=== PATIENT | female | born 1950 | race Caucasian/White ===

== ENCOUNTER 2024-08-09 10:12 | Observation (INO) ==
[2024-08-09] MEDS ORDERED: IOPAMIDOL 100 ML BOTTLE IV ONE (10:13)
[2024-08-09] MEDS: PANTOPRAZOLE 40 MG VIAL IV ONE (10:58)
[2024-08-09] MEDS: METOCLOPRAMIDE 10 MG/2 ML VIAL IV ONE (10:58)
[2024-08-09] MEDS: HYDROmorphone 0.5 MG/0.5 ML SYRINGE IV ONE (10:58)
[2024-08-09] MEDS: 0.9 % SODIUM CHLORIDE 1,000 ML IV ONE (10:59)
[2024-08-09 11:08] LABS: Basophils # (Auto) 0.04 K/mcL (0.00-0.30); Basophils % (Auto) 0.7 % (0.0-2.0); Eosinophils # (Auto) 0.09 K/mcL (0.00-0.70); Eosinophils % (Auto) 1.6 % (0.0-7.0); Hemoglobin 12.1 g/dL (11.2-15.7); Lymphocytes # (Auto) 1.05 K/mcL (1.50-4.80); Lymphocytes % (Auto) 19.1 % (15.5-49.0); Mean Cell Volume 94.8 fL (80.0-100.0); Mean Corpuscular HGB Conc 31.8 g/dL (31.0-36.0); Mean Platelet Volume 10.3 fL (8.8-12.5); Monocytes % (Auto) 10.9 % (1.0-12.0); Neutrophils % (Auto) 67.5 % (38.0-78.0); Platelet Count 214 K/mcL (140-440); RBC 4.01 M/mcL (3.59-5.38); Red Cell Distribution Width 13.7 % (11.5-14.5); WBC 5.5 K/mcL (4.5-11.0)
[2024-08-09 11:26] LABS: ALT/SGPT 26 U/L (<40); AST/SGOT 29 U/L (<32); Albumin/Globulin Ratio 1.6 (1.0-2.3); Alkaline Phosphatase 108 U/L (39-117); Bilirubin,Total 0.3 mg/dL (0.1-1.0); Blood Urea Nitrogen 15 mg/dL (8-23); Calcium 9.9 mg/dL (8.6-10.4); Carbon Dioxide 24 mmol/L (22-30); Chloride 103 mmol/L (96-108); Globulin 2.5 gm/dL (2.2-3.7); Glomerular Filtration Rate 64; Glucose 79 mg/dL (70-105); Potassium 4.1 mmol/L (3.3-5.1); Sodium 137 mmol/L (133-145)
[2024-08-09 12:27] LABS: Appearance,Urine Clear (Clear); Bilirubin,Urine Negative (Negative); Color,Urine Yellow; Glucose,Urine (UA) Negative (Negative); Ketones,Urine Negative (Negative); Leukocyte Esterase,Urine Negative /uL (Negative); Nitrate,Urine Negative (Negative); PH,Urine 7.5 (5.0-9.0); Protein,Urine Negative (Negative); Specific Gravity,Urine 1.015 (1.000-1.035); Urine Blood Negative ery/mcL (Negative); Urine RBC 0 /hpf (0-3); Urine Squamous Epithelial Cell 0 /hpf (0-4); Urine WBC 0 /hpf (0-4); Urobilinogen,Urine Normal
[2024-08-09] MEDS: LORazepam 2 MG/ML VIAL IV ONE (12:51)
[2024-08-09] MEDS: DEXTROSE 5%-LR 1,000 ML IV SCH (15:32)
[2024-08-09] MEDS ORDERED: DIATRIZOATE MEGLU/DIATRIZO SOD 120ML BOTTLE PO ONE (16:13)
[2024-08-09] MEDS ORDERED: BENZOCAINE/MENTHOL 1 LOZENGE PO PRN (18:00)
[2024-08-09] MEDS ORDERED: BACLOFEN 10 MG TABLET PO PRN (18:07)
[2024-08-09] MEDS ORDERED: IPRATROPIUM 2.5 ML AMPUL.NEB INH PRN (18:07)
[2024-08-09] MEDS ORDERED: LIDOCAINE 4% TOP PATCH TOPICAL PRN (19:00)
[2024-08-09] MEDS ORDERED: Fluticasone-Umeclidin-Vilanter [Trelegy Ellipta] Inhaler INH PRN (19:01)
[2024-08-09] MEDS: BENZOCAINE ONE 20% 1 SPRAY TOPICAL (19:06)
[2024-08-09] MEDS: HYDROmorphone 0.5 MG/0.5 ML SYRINGE IV PRN (20:17)
[2024-08-09] MEDS: LORazepam 2 MG/ML VIAL IV PRN (20:52)
[2024-08-09] MEDS: LORazepam 2 MG/ML VIAL ONE (20:55)
[2024-08-09] MEDS: ATORVASTATIN 40 MG TABLET PO SCH (21:48)
[2024-08-09] MEDS: traZODone HCL 100 MG TABLET PO SCH (21:48)
[2024-08-10] MEDS: BENZOCAINE/MENTHOL 1 LOZENGE PO PRN (02:28)
[2024-08-10 05:35] LABS: Hematocrit 35.1 % (34.1-44.9); Hemoglobin 11.4 g/dL (11.2-15.7); Mean Cell Volume 94.9 fL (80.0-100.0); Mean Corpuscular HGB Conc 32.5 g/dL (31.0-36.0); Mean Platelet Volume 10.2 fL (8.8-12.5); Platelet Count 193 K/mcL (140-440); Red Cell Distribution Width 13.4 % (11.5-14.5); WBC 3.7 K/mcL (4.5-11.0)
[2024-08-10 05:56] LABS: Blood Urea Nitrogen 11 mg/dL (8-23); Calcium 9.5 mg/dL (8.6-10.4); Carbon Dioxide 25 mmol/L (22-30); Chloride 105 mmol/L (96-108); Glomerular Filtration Rate 73; Glucose 132 mg/dL (70-105); Sodium 140 mmol/L (133-145)
[2024-08-10 08:21] VITALS: O2SAT 92
[2024-08-10] MEDS ORDERED: NON FORMULARY MEDICATION 1 DOSE MISCELL (Hydroxyzine Pamoate 25 mg capsule) PO PRN (12:51)
[2024-08-10] MEDS ORDERED: NYSTATIN CRM 1 DOSE TUBE TOPICAL PRN (12:51)
[2024-08-10] MEDS ORDERED: NON FORMULARY MEDICATION 1 DOSE MISCELL (Oxycodone 10 mg tablet) PO PRN (12:51)
[2024-08-10] MEDS ORDERED: TRIAMCINOLONE ACETONIDE 0.5% TOPICAL PRN (12:51)
[2024-08-10] MEDS ORDERED: NALOXONE HCL 4 MG NASAL (PP) NS SCH (13:00)
[2024-08-10 14:00] VITALS: TEMP 98.9
[2024-08-10] MEDS ORDERED: LURASIDONE 40 MG PO SCH (21:00)
[2024-08-10] MEDS ORDERED: NON FORMULARY MEDICATION 1 DOSE MISCELL (Gabapentin 600 mg tablet) PO SCH (21:00)
[2024-08-10] MEDS ORDERED: QUETIAPINE 150 MG PO SCH (21:00)
[2024-08-10] MEDS ORDERED: PRIMIDONE 50 MG TABLET PO SCH (21:00)
[2024-08-11] MEDS ORDERED: BUPROPION 200 MG PO SCH (09:00)
[2024-08-11] MEDS ORDERED: VITAMIN B COMPLEX PO SCH (09:00)
[2024-08-11] MEDS ORDERED: PANTOPRAZOLE 40 MG TABLET PO SCH (09:00)
[2024-08-11] MEDS ORDERED: DOCUSATE SODIUM 100 MG CAPSULE PO SCH (09:00)
[2024-08-11] MEDS ORDERED: POTASSIUM GLUCONATE PO SCH (09:00)
[2024-08-11] MEDS ORDERED: POLYETHYLENE GLYCOL 3350 17 GM PACKET PO SCH (09:00)
[2024-08-11] MEDS ORDERED: NON FORMULARY MEDICATION 1 DOSE MISCELL (Duloxetine 60 mg capsule,delayed release(DR/EC)) PO SCH (09:00)
[2024-08-11] MEDS ORDERED: NON FORMULARY MEDICATION 1 DOSE MISCELL (Calcium Carbonate-Vitamin D3 [Calcium 600 + D(3)] PO SCH (09:00)
[2024-08-11] MEDS ORDERED: LISINOPRIL 10 MG TABLET PO SCH (09:00)
== END 2024-08-10 14:35 | disposition home or self-care (01) ==
LOC: ICU 10:12 → ED 10:12 → ICU 16:22
PROVIDERS: ADMIT Surgery Surgical Critical Care; ATTEND Surgery Surgical Critical Care

== ENCOUNTER 2025-06-07 04:50 | Inpatient (IN) ==
[2025-05-24 14:35] LABS: Basophils # (Auto) 0.05 K/mcL (0.00-0.30); Basophils % (Auto) 0.9 % (0.0-2.0); Eosinophils # (Auto) 0.11 K/mcL (0.00-0.70); Eosinophils % (Auto) 2.0 % (0.0-7.0); Hematocrit 35.6 % (34.1-44.9); Hemoglobin 11.1 g/dL (11.2-15.7); Lymphocytes # (Auto) 1.67 K/mcL (1.50-4.80); Lymphocytes % (Auto) 30.4 % (15.5-49.0); Mean Corpuscular HGB Conc 31.2 g/dL (31.0-36.0); Monocytes # (Auto) 0.63 K/mcL (0.10-0.90); Monocytes % (Auto) 11.5 % (1.0-12.0); Neutrophils % (Auto) 55.2 % (38.0-78.0); Platelet Count 267 K/mcL (140-440); RBC 4.15 M/mcL (3.59-5.38); WBC 5.5 K/mcL (4.5-11.0)
[2025-05-24 15:01] LABS: ALT/SGPT 32 U/L (<40); AST/SGOT 31 U/L (<32); Albumin 4.0 gm/dL (3.2-5.2); Albumin/Globulin Ratio 1.4 (1.0-2.3); Alkaline Phosphatase 131 U/L (39-117); Anion Gap 8.0 (8.0-16.0); Bilirubin,Total 0.5 mg/dL (0.1-1.0); Blood Urea Nitrogen 25 mg/dL (8-23); Calcium 10.3 mg/dL (8.6-10.4); Carbon Dioxide 26 mmol/L (22-30); Chloride 102 mmol/L (96-108); Globulin 2.9 gm/dL (2.2-3.7); Glucose 92 mg/dL (70-105); Potassium 4.8 mmol/L (3.3-5.1); Sodium 136 mmol/L (133-145)
[2025-05-24 15:04] LABS: Estimated Average Glucose(eAG) 126 mg/dL; Hemoglobin A1C 6.0 % Hgb (4.0-6.0)
[2025-05-24 15:18] LABS: INR 1.0 (0.9-1.1); Prothrombin Time 13.9 sec (11.9-14.5)
[2025-05-24 19:04] LABS: Bilirubin,Urine Negative (Negative); Color,Urine STRAW; Glucose,Urine (UA) Negative (Negative); Ketones,Urine Negative (Negative); Leukocyte Esterase,Urine Negative /uL (Negative); PH,Urine 7.0 (5.0-9.0); Protein,Urine Negative (Negative); Specific Gravity,Urine 1.003 (1.000-1.035); Urobilinogen,Urine Negative
[2025-06-07] MEDS: ceFAZolin 2 GM in DEXTROSE 5% IN WATER 50 ML IV SCH (05:49)
[2025-06-07] MEDS: LISINOPRIL 10 MG TABLET ONE (05:50)
[2025-06-07] MEDS: LISINOPRIL 10 MG TABLET PO ONE (05:58)
[2025-06-07] MEDS ORDERED: MIDAZOLAM 2 MG/2 ML VIAL ONE (07:07)
[2025-06-07] MEDS ORDERED: FAMOTIDINE/PF 20 MG/2 ML VIAL IV ONE (07:07)
[2025-06-07] MEDS ORDERED: PROPOFOL 200 MG/20 ML VIAL IV ONE (07:08)
[2025-06-07] MEDS ORDERED: DEXAMETHASONE 10 MG/ML VIAL ONE (07:14)
[2025-06-07] MEDS ORDERED: TRANEXAMIC ACID 1,000 MG/10 ML VIAL ONE (07:14)
[2025-06-07] MEDS ORDERED: DEXMEDETOMIDINE HCL 200 MCG/2 ML VIAL ONE (07:14)
[2025-06-07] MEDS ORDERED: METOCLOPRAMIDE 10 MG/2 ML VIAL ONE (07:14)
[2025-06-07] MEDS ORDERED: ONDANSETRON 4 MG/2 ML VIAL ONE (07:14)
[2025-06-07] MEDS ORDERED: LIDOCAINE 2% PF 5 ML VIAL ONE (07:14)
[2025-06-07] MEDS ORDERED: GLYCOPYRROLATE 0.2 MG/ML VIAL IV ONE (07:14)
[2025-06-07] MEDS ORDERED: SUCCINYLCHOLINE 200 MG/10 ML VIAL IV ONE (07:14)
[2025-06-07] MEDS ORDERED: HYDROmorphone 0.5 MG/0.5 ML SYRINGE ONE ×3 (07:40→11:53)
[2025-06-07] MEDS ORDERED: fentaNYL 100 MCG/2 ML VIAL ONE ×3 (08:21→12:04)
[2025-06-07] MEDS: GELATIN SPONGE,ABSORBABLE 1 EACH SPONGE TOPICAL ONE (09:54)
[2025-06-07] MEDS ORDERED: fentaNYL 100 MCG/2 ML VIAL IV PRN (10:17)
[2025-06-07] MEDS ORDERED: DROPERIDOL 5 MG/2 ML VIAL IV PRN (10:17)
[2025-06-07] MEDS ORDERED: IPRATROPIUM/ALBUTEROL 3 ML AMPUL.NEB NEB PRN ×3 (10:17→12:41)
[2025-06-07] MEDS ORDERED: HYDROmorphone 0.5 MG/0.5 ML SYRINGE IV PRN (10:17)
[2025-06-07] MEDS: BUPIVACAINE 0.25% 50 ML VIAL IJ ONE (11:11)
[2025-06-07] MEDS: THROMBIN (BOVINE) 5,000 UNIT VIAL TOPICAL ONE (11:11)
[2025-06-07] MEDS: VANCOMYCIN 1 GM VIAL TOPICAL SCH (12:13)
[2025-06-07] MEDS ORDERED: ONDANSETRON 4 MG ODT TABLET SL PRN (12:15)
[2025-06-07] MEDS ORDERED: BENZOCAINE/MENTHOL 1 LOZENGE PO PRN (12:15)
[2025-06-07] MEDS ORDERED: ONDANSETRON 4 MG/2 ML VIAL IV PRN (12:15)
[2025-06-07] MEDS ORDERED: NYSTATIN CRM 1 DOSE TUBE TOPICAL PRN (12:21)
[2025-06-07] MEDS: ACETAMINOPHEN 1,000 MG/100 ML BAG IV ONE (12:43)
[2025-06-07] MEDS: DIAZEPAM 10 MG/2 ML SYRINGE IV ONE (12:50)
[2025-06-07] MEDS: fentaNYL 100 MCG/2 ML VIAL IV PRN (13:12)
[2025-06-07] MEDS: HYDROmorphone 0.5 MG/0.5 ML SYRINGE IV PRN (13:27)
[2025-06-07] MEDS: DIAZEPAM 10 MG/2 ML SYRINGE ONE (14:12)
[2025-06-07] MEDS: 0.9 % SODIUM CHLORIDE 1,000 ML IV SCH (14:40)
[2025-06-07] MEDS: METHOCARBAMOL 750 MG TABLET PO PRN (14:41)
[2025-06-07] MEDS: 0.9 % SODIUM CHLORIDE 10 ML SYRINGE IV SCH (14:41)
[2025-06-07] MEDS: GABAPENTIN 300 MG CAPSULE PO SCH (14:41)
[2025-06-07] MEDS: buPROPion 100 MG TAB.SR.12H PO SCH (21:04)
[2025-06-07] MEDS: SENNOSIDES 1 TABLET PO SCH (21:04)
[2025-06-07] MEDS: DOCUSATE SODIUM 100 MG CAPSULE PO SCH (22:31)
[2025-06-08 06:20] LABS: Hematocrit 31.9 % (34.1-44.9)
[2025-06-08 06:21] LABS: Hemoglobin 9.6 g/dL (11.2-15.7)
[2025-06-08] MEDS: DIAZEPAM 10 MG/2 ML SYRINGE IV ONE (08:03)
[2025-06-08 09:05] LABS: Anion Gap 10.0 (8.0-16.0); Blood Urea Nitrogen 15 mg/dL (8-23); Calcium 9.2 mg/dL (8.6-10.4); Carbon Dioxide 24 mmol/L (22-30); Chloride 105 mmol/L (96-108); Glucose 113 mg/dL (70-105); Potassium 4.5 mmol/L (3.3-5.1); Sodium 139 mmol/L (133-145)
[2025-06-08] MEDS: DOCUSATE SODIUM 100 MG CAPSULE PO SCH (09:36)
[2025-06-08] MEDS: CELECOXIB 200 MG CAPSULE PO SCH (09:36)
[2025-06-08] MEDS: LISINOPRIL 10 MG TABLET PO SCH (09:37)
[2025-06-08] MEDS: DIAZEPAM 5 MG TABLET PO PRN (14:36)
[2025-06-09 06:27] LABS: Hematocrit 31.5 % (34.1-44.9); Hemoglobin 9.6 g/dL (11.2-15.7)
[2025-06-09] MEDS: MAGNESIUM HYDROXIDE 30 ML ORAL.SUSP PO SCH (21:34)
[2025-06-10 06:17] LABS: Hematocrit 29.0 % (34.1-44.9)
[2025-06-10 06:18] LABS: Hemoglobin 9.1 g/dL (11.2-15.7)
[2025-06-10] MEDS: Fluticasone-Umeclidinium-Vilanterol [Trelegy Ellipta] Inhaler PO PRN (09:29)
[2025-06-11] MEDS: MAGNESIUM HYDROXIDE 30 ML ORAL.SUSP PO PRN (12:38)
[2025-06-11 14:45] VITALS: TEMP 98.2; O2SAT 92
== END 2025-06-11 15:15 | DRG 402 ==
LOC: MEDSUR 04:50 → EDSTATUS 07:30
PROVIDERS: ADMIT Orthopaedic Surgery Orthopaedic Surgery of the Spine; ATTEND Orthopaedic Surgery Orthopaedic Surgery of the Spine